=== PATIENT | female | born 1955 | race Caucasian/White ===

== ENCOUNTER 2023-07-03 05:55 | Day surgery (SDC) | payer MEDICARE, OTHER ==
[2023-07-02 11:20] VITALS: BMI 33.0
[~2023-07-03 05:55] MED LIST: EPINEPHrine 0.3 MG in Ophthalmic Irrigation Solution 500 ML IRR SCH
[2023-07-03] MEDS ORDERED: PHENYLephrine 2.5% Ophth Soln 15 ml Bottle ONE (06:15)
[2023-07-03] MEDS ORDERED: Cyclopentolate 0.5% Opth Drops 15 ML BOT ONE (06:15)
[2023-07-03] MEDS ORDERED: PROPOFOL 20 ML ONE (06:58)
[2023-07-03] MEDS ORDERED: fentaNYL 50 mcg/mL 1 mL Vial ONE (07:06)
[2023-07-03] MEDS ORDERED: Lidocaine 4% PF 5 ML AMP ONE (07:07)
[2023-07-03] MEDS ORDERED: Dexamethasone 0.1% OPTH SOLN ONE (07:07)
[2023-07-03] MEDS ORDERED: Maxitrol 0.1% Opth Oint 3.5 GM TUBE ONE (07:07)
[2023-07-03] MEDS ORDERED: Bupivacaine 0.75% 10 ML VIAL ONE (07:07)
[2023-07-03] MEDS ORDERED: CEFAZOLIN 1 GM VIAL ONE (07:07)
[2023-07-03] MEDS ORDERED: Lidocaine 1% PF 5 ML VIAL ONE (07:07)
[2023-07-03] MEDS ORDERED: Dexamethasone 4 mg/ml Vial ONE (07:09)
== END 2023-07-03 08:15 | disposition home or self-care (01) ==
LOC: SDC 05:55
PROVIDERS: ATTEND Ophthalmology Retina Specialist
PROC: 08T43ZZ Resection of Right Vitreous, Percutaneous Approach (ICD-10-PCS; principal; 2023-07-03)
DX: H43.311 Vitreous membranes and strands, right eye (principal)
CPT/HCPCS: 67041; J3010; J0171; J0690; J1100; J2704; J3490

== ENCOUNTER 2023-09-11 06:30 | Day surgery (SDC) | payer MEDICARE ==
[2023-09-10 12:58] VITALS: BMI 33.0
[2023-09-11] MEDS ORDERED: fentaNYL 50 mcg/mL 1 mL Vial ONE (06:35)
[2023-09-11] MEDS ORDERED: PROPOFOL 20 ML ONE (06:35)
[2023-09-11] MEDS ORDERED: Midazolam HCl 2 mg/2 ml Vial ONE (06:35)
[2023-09-11] MEDS ORDERED: Cyclopentolate 1% Opth Drop 2 ML BOT ONE (06:43)
[2023-09-11] MEDS ORDERED: PHENYLephrine 2.5% Ophth Soln 15 ml Bottle ONE (06:43)
[2023-09-11] MEDS ORDERED: Bupivacaine 0.75% 10 ML VIAL ONE (07:12)
[2023-09-11] MEDS ORDERED: CEFAZOLIN 1 GM VIAL ONE (07:12)
[2023-09-11] MEDS ORDERED: Lidocaine 1% PF 5 ML VIAL ONE (07:12)
[2023-09-11] MEDS ORDERED: Dexamethasone 4 mg/ml Vial ONE ×2 (07:12→07:37)
[2023-09-11] MEDS ORDERED: Lidocaine 4% PF 5 ML AMP ONE (07:12)
[2023-09-11] MEDS ORDERED: Lidocaine 1% MPF 2 ML VIAL ONE (07:38)
== END 2023-09-11 08:28 | disposition home or self-care (01) ==
LOC: SDC 06:30
PROVIDERS: ATTEND Ophthalmology Retina Specialist
PROC: 08T53ZZ Resection of Left Vitreous, Percutaneous Approach (ICD-10-PCS; principal; 2023-09-11)
DX: H43.312 Vitreous membranes and strands, left eye (principal); Z88.0 Allergy status to penicillin; Z88.8 Allergy status to other drugs, medicaments and biological substances
CPT/HCPCS: 67041; J3010; J0171; J0690; J1100; J2250; J2704; J3490